=== PATIENT | female | born 1960 | race Caucasian/White ===

== ENCOUNTER 2021-02-01 14:20 | Outpatient (CLI) | payer OTHER | END 2021-02-01 14:21 | disposition home or self-care (01) | LOC: CSHMAMMO 14:20 | PROVIDERS: ATTEND Obstetrics & Gynecology | DX: Z12.31 Encounter for screening mammogram for malignant neoplasm of breast (principal); Z80.3 Family history of malignant neoplasm of breast | CPT/HCPCS: 77063; 77067 ==

== ENCOUNTER 2024-01-23 15:03 | Outpatient (CLI) | payer BC | END 2024-01-23 15:04 | disposition home or self-care (01) | LOC: CSHMAMMO 15:03 | PROVIDERS: ATTEND Student in an Organized Health Care Education/Training Program | DX: Z12.31 Encounter for screening mammogram for malignant neoplasm of breast (principal); Z80.3 Family history of malignant neoplasm of breast | CPT/HCPCS: 77063; 77067 ==

== ENCOUNTER 2025-02-26 14:32 | Outpatient (CLI) | payer BC | END 2025-02-26 14:33 | disposition home or self-care (01) | LOC: CSHMAMMO 14:32 | PROVIDERS: ATTEND Obstetrics & Gynecology | DX: Z12.31 Encounter for screening mammogram for malignant neoplasm of breast (principal); Z80.3 Family history of malignant neoplasm of breast | CPT/HCPCS: 77063; 77067 ==